=== PATIENT | female | born 1965 | race Two or more races ===

== ENCOUNTER → 2024-10-06 | Outpatient (CLI) | payer MEDICAID, SELFPAY ==
--- NOTE | 2024-10-06 13:00 | XR_ITS ---
Examination: Screening digital mammography, bilateral Computer aided detection 3-D breast Tomosynthesis, bilateral Date and time of exam: October 06, 2024 1345 hours Indication: Screening Technique: Nonmagnified MLO, CC views of the breasts to been obtained, reconstructed from 3-D Tomosynthesis images. R2 computer aided detection program utilized for evaluation of suspicious masses and/or abnormal calcifications. 3-D Tomosynthesis images obtained. Findings: Scattered areas of fibroglandular density. Skin lesion inner left breast. Benign calcifications. No suspicious masses Impression: BI-RADS category II: Benign Findings. Recommend 1 year follow-up mammogram.
== END | disposition home or self-care (01) ==
PROVIDERS: PCP Student in an Organized Health Care Education/Training Program; Referring Provider Student in an Organized Health Care Education/Training Program; Visit Provider Student in an Organized Health Care Education/Training Program
DX: Z12.31 Encounter for screening mammogram for malignant neoplasm of breast (principal); R92.323 Mammographic fibroglandular density, bilateral breasts; R92.1 Mammographic calcification found on diagnostic imaging of breast
CPT/HCPCS: 77063; 77067

== ENCOUNTER 2025-02-22 09:55 | Outpatient (AMB) | payer MEDICAID, SELFPAY ==
[2025-02-22 10:14] VITALS: BP 161/90; PULSE 97; RESP 18; O2SAT 96
--- NOTE | 2025-02-22 10:14 | PD.RESCLINIC ---
Vital Signs 02/22/25 10:14 Weight 62.766 kg Weight Measurement Method Standing Scale BP 161/90 H Blood Pressure Source Automatic Cuff Blood Pressure Location Right Upper Arm Position Sitting Respiration 18 Pulse 97 Pulse Source Monitor Pulse Oximetry (%) 96 Oxygen Delivery Method Room Air Allergies/Meds Allergies & Medications Allergies No Known Allergies Allergy (Verified 02/22/25 10:15) MA Intake Visit Data Collection New Patient or Established: New Patient not seen in past 3 years at [facility] (considered New) Seen by Clinical Staff ONLY (RN/MA): No Pain Present Currently: No Pain scale:: 0 Pain Scale Used: Huggins-Julio/Numerical Epic Ambulatory Specialists Required: No PCP or OBGYN visit in last 3 months: No Hx Now: No Smoking Status Smoking Status: Never smoker Immunization / Flu Flu Vaccine in the Last 12 Months: No Flu Vaccine Exclusion Criteria: No Exclusion Criteria Past Medical History Past Medical History CARDIAC: Positive Cardiac Disorders RESPIRATORY: Negative Asthma GENITOURINARY: Negative Renal Disease ENDOCRINE: Negative Diabetes Mellitus Type 2 HEMATOLOGIC: Negative Sickle Cell Disease Social History SMOKING STATUS: Smoking status: Never smoker Patient Portal Questionaires Social History Tobacco History Smoking Status: Never smoker Review of Systems Report any current symptoms Only answer those that you have currently: Past Medical History Past Medical History Have you ever been diagnosed with any of the following: Respiratory Problems Asthma: No Genital/Urinary Problems Renal Disease: No Endocrine Problems Diabetes Mellitus Type 2: No Blood Problems Sickle Cell Disease: No History of Present Illness HPI Narrative Chief Complaint (CC): Establish care History of Present Illness (HPI): a 59-year-old female patient reportedly known case of diabetes mellitus, peripheral neuropathy,? Left eye retinopathy,?right eye glaucoma, hypertension who recently immigrated from [facility] last year came to the clinic to establish care. Patient reported that she has recurrent pain, tingling and numbness of her lower extremities for the past few years associated with mild swelling whenever she stands up for prolonged.. Even though she was prescribed gabapentin that she brought with her however it did not help with her symptoms. Patient reported that the symptoms located in the upper and lower extremities and denied any weakness. Patient has been diagnosed with diabetes mellitus for more than 15 years, she reported at some point she was on insulin however she was switched to oral meds for unknown reason. She reported excessive thirst and excessive urination, she reported that her last A1c was 5 months ago and it was 11. At this time she is on 4 oral glycemic medications including metformin, glipizide, Januvia, Rybelsus, she reported that she has difficulty managing her meds as they are all marked in Latvian, she also reported having difficulty to follow-up with her previous PCP due to her inability to communicate with them in Latvian, unable to drive, and reported that she lives with her daughter who has multiple kids and also limited Latvian proficiency and sometimes she is unable to bring her to her appointments. In review of other possible diabetes complication, patient reported that she has history of left eye retinopathy she does not know the reason and she is taking eyedrops for it. She mentions that her previous provider has referred her to an conference assistant in [place] however she has not had the chance to see him yet. Patient denied any urine tract symptoms, denied any frothy urine and has never seen a sharepoint manager in the past. In review of other system: Neurology/psychiatry: Patient reported that since she came to the [facility] she feels that she is isolated, unable to drive, she reported that her mood has been low all-time. Reported excessive fatigue, guilt, she also reported feels sad all the time, she also reported weight loss and loss of appetite, she became teary while she is telling me that she hates how she feels now. Patient denied any history of suicidal ideation and denied any plans to hurt herself or others. Respiratory/CVS: Patient reported excessive shortness of breath when she lays flat and she has to put 2 pillows whenever she sleeps. Patient reported mild chest pain that is not related to any activity. The chest pain is located at the epigastric area with no radiation associated with nausea. Patient also reported episodes of palpitation however she denied any dizziness, cough, fever, or any history of rheumatic fever. GI: Patient reported recurrent episodes of nausea, halitosis, patient reported alternating constipation and diarrhea associated with weight loss specially for the past year after she came to the [facility]. She believes it is because her diet has changed here in the [facility]. However denied any upper or lower GI bleed. Reported that almost 3 years ago she has done an EGD in [facility] and was found to have peptic ulcer and was treated at that time. Patient has never had colonoscopy in the past. Musculoskeletal: Patient reported left knee pain, increased with activity, the pain also started as soon as she wake up. However she denied any swelling, hotness, or tenderness and denied any change of skin color over any joints. She also reported crack sounds whenever she flex or extend her knee joint. Last visit to the ED was in 2023 after she experienced diarrhea and found to have black tarry stool however it was concluded that the patient has gastroenteritis and the change in color of her stool was secondary to her Pepto-Bismol that she took [id number]. Patient was instructed to follow-up with a GI specialist however she has never seen a GI specialist and does not remember she was told to do so. Patient is here for continuity of care, medication refills, and routine management. Past Medical History (PMH): as above Family History: Parents unknown reason Social History: ? Tobacco: Denied ? Alcohol: Denied ? Drug Use: Denied ? Exercise: Daily chores only, no dedicated physical exercise ? Occupation: Unemployed ? Limitations: Speak only Setswana Medications: Metformin, glipizide, Rybelsus, Januvia, lisinopril, gabapentin, omeprazole, eyedrops? Allergies: No known allergies Review of Systems Review of Systems Systems Reviewed: All systems reviewed, normal except as documented Objective/Exam Narrative Physical exam: GEN: AOx3, able to speak full sentences, low mood and affect HEENT: NC/AC, oral mucosa moist, neck supple CVS: RRR, S1-S2 present, no murmurs appreciated RESP: Decreased air entry on the right side basal area, no added sounds, no respiratory distress GI: soft,non distended, non tender, NBS MSK: able to move all 4 limbs, no lower extremity edema, no injuries noted SKIN: warm and dry PARLOR MAID: CN II-XII are grossly intact, and decreased sensation grossly in the lower and upper extremities. Assessment & Plan Diagnosis / Problem List (1) Depression: Status: Acute Assessment & Plan: Screening for depression through the major depression index came back positive for moderate depression with a score of 18 Could be secondary to her feeling isolated since she immigrated from [facility] last year. She reported that she lives with her daughter and she feels that her daughter is overwhelmed as she has multiple kids she has to take care of them. She also reported her language barrier has been affecting her and she is unable to socialize and made her feel isolated. She also reported that she is unable to drive and she relies on her brother or her daughter to take her to her appointments. Patient has lost approximately 3 kg since her last visit to the ED last year 2023 Plan: ? Vitamin B12 screening ? Vitamin D screening ? TSH screening ? if all lab results came back normal we will start the patient on antidepressant medication and will try to refer the patient to psychologist. (2) Hypertension: Status: Acute Qualifiers: Hypertension type: primary hypertension Qualified Code(s): I10 - Essential (primary) hypertension Assessment & Plan: Patient reported that she has been taking lisinopril for her blood pressure. She mentions that most of the time her blood pressure within normal limits however on questioning how often she takes her blood pressure measurements she reported every few months. Today her blood pressure was 161/90 Plan: ? Continue her home medication lisinopril. ? Patient instructed to check her blood pressure on daily basis and keep a chart to see if we need to adjust her medications. (3) Diabetes: Status: Acute Qualifiers: Diabetes mellitus type: type 2 Diabetes mellitus prison insulin use: with exterminator use Diabetes mellitus complication status: with ophthalmic complications Diabetes mellitus complication detail: with diabetic retinopathy Diabetic retinopathy severity: with unspecified retinopathy severity Laterality: left Diabetes mellitus macular edema: without macular edema Qualified Code(s): E11.319 - Type 2 diabetes mellitus with unspecified diabetic retinopathy without macular edema; Z79.4 - exterminator helper (current) use of insulin Assessment & Plan: Patient reported that she was diagnosed with diabetes more than 15 to 20 years ago, she reported that at some point she was on insulin for only 1 year and was switched to oral medications for unknown reason. She does not follow-up regularly on her A1c however she mentioned that last A1c was done approximately 5 to 6 months ago and it was 11. On questioning patient reported that she has polyphagia and polydipsia which indicate that she has poor diabetes control. She also reported that she has signs and symptoms of peripheral neuropathy, history of retinopathy and her left eye. On review of her medications she was found to be on metformin, Rybelsus, Januvia, glipizide Plan: ? CBC, CMP, A1c, TSH ? Random microalbuminuria/urine creatinine ratio ? Patient was already referred to conference assistant by her previous PCP has been waiting for an appointment from the doctor's office in [place], will follow-up ? Will refer the patient to podiatry after we get the results for the vitamin B12 level ? Lipid panel to assess cardiovascular accident risk stratification ? Dietary counseling (4) Fatigue: Status: Acute Qualifiers: Fatigue type: chronic, unspecified Qualified Code(s): R53.82 - Chronic fatigue, unspecified Assessment & Plan: Patient reported excessive fatigue, weight loss, nausea, could be metabolic secondary to poorly controlled diabetes mellitus versus nutritional versus psychological Plan: ? CBC, TSH level, vitamin D level, iron study ? Follow-up on the other blood work results ? If all lab ruled out any physical reason for depression we will start the patient on antidepressant medications. (5) Weight loss: Status: Acute Assessment & Plan: Patient reported weight loss, objectively last year in January 2024 her body weight was 65.3 today her body weight is 62.7. Patient reported that she has persistent nausea and halitosis. She also reported alternating symptoms of constipation and diarrhea. Patient has never had colonoscopy however she had EGD was done approximately 3 years ago in [facility] and she found to have peptic ulcer which was treated at that time. Has never had colonoscopy workup. Plan: ? Urea breath test. Hold any [id number] omeprazole for 7 days before the urea breath test. ? Referral for GI specialist Dr. Miller for possible colonoscopy as she has never had cancer screening. Will will follow-up with the GI specialist recommendation if the patient need EGD according to the GI specialist. ?Fecal occult blood test lab (6) Halitosis: Status: Acute Plan: As above (7) Shortness of breath: Status: Acute Assessment & Plan: Patient reported that she has orthopnea, palpitation, she reported that she has done an echo in 2022 in [facility] and they reported that she has mild heart enlargement she also reported she has persistent chest pain that is not related to the activity. She denied any fainting episodes. Patient was referred by her previous PCP to a mud car worker. She reported that her appointment is today at 2:30 PM. Plan: - Follow-up with the patient mud car worker recommendations. ? Will ask for the records from the mud car worker ? Chest x-ray (8) Left knee pain: Status: Acute Assessment & Plan: Most likely osteoarthritis as the pain increased with activity located in the left side only, she feels crunching sound when she stretch her knee. Denied any redness or hotness on the overlying skin. Denied any swelling fever or chills. Plan: - Left knee x-ray Orders: Orders Comprehensive Metabolic Panel 02/22/25 E11.9 - Type 2 diabetes mellitus without complications, F32.A - Depression, unspecified, I10 - Essential (primary) hypertension Occult Blood, Stool (LAB) 02/22/25 R53.83 - Other fatigue, R63.4 - Abnormal weight loss Urea Breath Test 02/22/25 R11.0 - Nausea, R19.6 - Halitosis Microalbumin, Ur Rnd w Creat 02/22/25 E11.9 - Type 2 diabetes mellitus without complications Vitamin B12 02/22/25 Ambulatory Hemoglobin A1C 02/22/25 E11.9 - Type 2 diabetes mellitus without complications, I10 - Essential (primary) hypertension Lipid Panel 02/22/25 Thyroid Stimulating Hormone 02/22/25 R53.83 - Other fatigue Vitamin D 25 Hydroxy Total 02/22/25 E11.9 - Type 2 diabetes mellitus without complications Iron 02/22/25 R53.83 - Other fatigue, R63.4 - Abnormal weight loss XR chest 2V 02/22/25 R06.02 - Shortness of breath XR knee limited LT 2V 02/22/25 M25.562 - Pain in left knee Referrals Gastroenterology F32.A - Depression, unspecified, K59.00 - Constipation, unspecified Additional Assessment Preventive Care - Cervical cancer: Pap + HPV q5y until age 64, pending old medical records from her previous PCP - Breast cancer: Done in October 2024 BI-RADS category II: Benign Findings. Recommend 1 year follow-up mammogram. Next will be in October 2025 - Colorectal cancer: Patient referred to Dr. Miller on the 22 February 2025 for colon cancer screening - Flu shots: Unknown Office Procedures [facility] Level of Care Nursing/Assessment Patient Status: Established Patient Nursing Assessment/Reassessment: Medication Reconciliation, Update PMH in EMR and Vital Signs Coordination of Care: Complex Care and Chronic Disease 1-5, Consent,records obtained, informed consent, Education Simp Pt/Fam and Staff clarify orders Established Patient Charge Established Patient Point Assignment: 85 Established Patient Point Charge: EP Level 3 (80-115)
== END 2025-02-22 11:08 | disposition home or self-care (01) ==
LOC: HODAHC 09:55
PROVIDERS: Supervising Provider Internal Medicine; Visit Provider Student in an Organized Health Care Education/Training Program
DX: F32.A Depression, unspecified (principal); I10 Essential (primary) hypertension; E11.9 Type 2 diabetes mellitus without complications; R53.82 Chronic fatigue, unspecified; R63.4 Abnormal weight loss; R19.6 Halitosis; R06.02 Shortness of breath; M25.562 Pain in left knee
CPT/HCPCS: 99213; G0463

== ENCOUNTER → 2025-02-23 | Outpatient (CLI) | payer MEDICAID, SELFPAY ==
--- NOTE | 2025-02-23 | XR_ITS ---
Examination: Left knee 2 views Technique one AP lateral left knee 2 views Date and time: February 23, 2025 1144 hours INDICATIONS: Left knee pain several months. FINDINGS: Mild to moderate narrowing medial joint space Mild to moderate osteoarthritis patellofemoral joint No fracture Moderate osteopenia IMPRESSION: Mild to moderate osteoarthritis
--- NOTE | 2025-02-23 | XR_ITS ---
Examination: PA lateral chest 2 views TECHNIQUE: Upright PA lateral chest 2 views. Date and time: February 23, 11:41 AM. INDICATIONS: Shortness of breath beginning one week ago. FINDINGS: Normal heart size The lungs are clear. The osseous structures are demineralized IMPRESSION: No active disease
== END | disposition home or self-care (01) ==
LOC: CDIM 10:44
PROVIDERS: PCP Student in an Organized Health Care Education/Training Program; Referring Provider Student in an Organized Health Care Education/Training Program; Visit Provider Student in an Organized Health Care Education/Training Program
DX: M17.12 Unilateral primary osteoarthritis, left knee (principal); R06.02 Shortness of breath
CPT/HCPCS: 71046; 73560

== ENCOUNTER → 2025-04-13 13:38 | Outpatient (AMB) | payer MEDICAID, SELFPAY | PROVIDERS: PCP Student in an Organized Health Care Education/Training Program; Referring Provider Student in an Organized Health Care Education/Training Program; Supervising Provider Student in an Organized Health Care Education/Training Program; Visit Provider Student in an Organized Health Care Education/Training Program | DX: Z53.9 Procedure and treatment not carried out, unspecified reason (principal) ==

== ENCOUNTER 2025-04-27 13:18 | Outpatient (AMB) | payer MEDICAID, SELFPAY ==
[2025-04-27 13:29] VITALS: BP 158/92; PULSE 95; RESP 18; TEMP 36.7; O2SAT 97
--- NOTE | 2025-04-27 13:29 | PD.RESCLINIC ---
Vital Signs 04/27/25 13:29 Weight 63.673 kg Weight Measurement Method Standing Scale BP 158/92 H Blood Pressure Source Automatic Cuff Blood Pressure Location Right Upper Arm Position Sitting Respiration 18 Pulse 95 Pulse Source Monitor Temp 98.1 F Temp Source Oral Pulse Oximetry (%) 97 Oxygen Delivery Method Room Air Allergies/Meds Allergies & Medications Allergies No Known Allergies Allergy (Verified 04/27/25 13:30) Medication Reconciliation alcohol swabs (Alcohol Pads) 1 pad topical TID #200 ea 04/27/25 [Rx] aspirin 81 mg tablet 81 mg PO QDAY #20 tabs 04/27/25 [Rx] atorvastatin 20 mg tablet (Lipitor) 20 mg PO QHS #20 tabs 04/27/25 [Rx] blood sugar diagnostic (Accu-Chek Guide test strips) #100 ea 04/27/25 [Rx] blood-glucose meter (Accu-Chek Guide Me Glucose Meter) #1 ea 04/27/25 [Rx] gabapentin 300 mg capsule 300 mg PO QDAY 04/27/25 [History Confirmed 04/27/25] lancets (Accu-Chek Fastclix Lancet Drum) #200 ea 04/27/25 [Rx] lancets 28 gauge (Acti-Isaías Lancets) #100 ea 04/27/25 [Rx] lisinopril 20 mg tablet 20 mg PO QDAY #30 tabs 04/27/25 [Rx] omeprazole 20 mg capsule,delayed release 20 mg PO QDAY 04/27/25 [History Confirmed 04/27/25] sitagliptin phos 100 mg-metformin ER 1,000 mg tablet,extend rel 24h mp (Janumet XR) 1 tab PO QDAY 04/27/25 [History Confirmed 04/27/25] MA Intake Visit Data Collection New Patient or Established: Established Patient (seen at [facility] within 3 years) Seen by Clinical Staff ONLY (RN/MA): No Pain Present Currently: No Pain scale:: 0 Pain Scale Used: Huggins-Julio/Numerical Do You Feel Safe at Home: Yes Authorities Contacted: N/A Smoking Status Smoking Status: Never smoker Immunization / Flu Flu Vaccine in the Last 12 Months: No Flu Vaccine Exclusion Criteria: No Exclusion Criteria Past Medical History Past Medical History CARDIAC: Positive Cardiac Disorders RESPIRATORY: Negative Asthma GENITOURINARY: Negative Renal Disease ENDOCRINE: Negative Diabetes Mellitus Type 2 HEMATOLOGIC: Negative Sickle Cell Disease Social History SMOKING STATUS: Smoking status: Never smoker Patient Portal Questionaires Social History Tobacco History Smoking Status: Never smoker Domestic Abuse History Do You Feel Safe at Home: Yes Review of Systems Report any current symptoms Only answer those that you have currently: Past Medical History Past Medical History Have you ever been diagnosed with any of the following: Respiratory Problems Asthma: No Genital/Urinary Problems Renal Disease: No Endocrine Problems Diabetes Mellitus Type 2: No Blood Problems Sickle Cell Disease: No Assessment & Plan Diagnosis / Problem List (1) Diabetes: Status: Acute Qualifiers: Diabetes mellitus complication detail: with diabetic retinopathy Diabetes mellitus complication status: with ophthalmic complications Diabetes mellitus assisted insulin use: with assisted use Diabetes mellitus macular edema: without macular edema Diabetes mellitus type: type 2 Diabetic retinopathy severity: with unspecified retinopathy severity Laterality: left Qualified Code(s): E11.319 - Type 2 diabetes mellitus with unspecified diabetic retinopathy without macular edema; Z79.4 - penitentiary (current) use of insulin (2) Hypercalcemia: Status: Acute (3) Abdominal pain: Status: Acute Orders: Orders Lipid Panel 1 Week R10.9 - Unspecified abdominal pain Vitamin D 25 Hydroxy Total 1 Week E83.52 - Hypercalcemia Helicobacter pylori Ag, Stool* 1 Week R10.9 - Unspecified abdominal pain Microalbumin, Ur Rnd w Creat 1 Week E11.319 - Type 2 diabetes mellitus with unspecified diabetic retinopathy without macular edema, Z79.4 - tank terminal gauger (current) use of insulin Parathyroid Hormone Intact 1 Week E83.52 - Hypercalcemia Thyroid Stimulating Hormone 1 Week Ambulatory Hemoglobin A1C 1 Week E11.319 - Type 2 diabetes mellitus with unspecified diabetic retinopathy without macular edema, Z79.4 - penitentiary (current) use of insulin Office Procedures [facility] Level of Care Nursing/Assessment Patient Status: Established Patient Nursing Assessment/Reassessment: Medication Reconciliation, Update PMH in EMR and Vital Signs Coordination of Care: Complex Care and Chronic Disease 1-5, Education Complex Pt/Fam and Staff clarify orders Established Patient Charge Established Patient Point Assignment: 85 Established Patient Point Charge: EP Level 2 (40-75)
== END 2025-04-27 14:23 | disposition home or self-care (01) ==
LOC: HODAHC 13:18
PROVIDERS: PCP Student in an Organized Health Care Education/Training Program; Referring Provider Student in an Organized Health Care Education/Training Program; Supervising Provider Student in an Organized Health Care Education/Training Program; Visit Provider Student in an Organized Health Care Education/Training Program
DX: E11.319 Type 2 diabetes mellitus with unspecified diabetic retinopathy without macular edema (principal); Z79.84 Long term (current) use of oral hypoglycemic drugs; Z79.4 Long term (current) use of insulin; E83.52 Hypercalcemia; R10.9 Unspecified abdominal pain
CPT/HCPCS: 99212; G0463

== ENCOUNTER 2025-05-04 14:21 | Outpatient (AMB) | payer MEDICAID, SELFPAY ==
--- NOTE | 2025-05-04 14:23 | ACNOTE_ITS ---
Allergies/Meds Allergies & Medications Allergies No Known Allergies Allergy (Verified 05/04/25 14:23) Medication Reconciliation alcohol swabs (Alcohol Pads) 1 pad topical TID #200 ea 04/27/25 [Rx Confirmed 05/04/25] aspirin 81 mg tablet 81 mg PO QDAY #20 tabs 04/27/25 [Rx Confirmed 05/04/25] blood sugar diagnostic (Accu-Chek Guide test strips) #100 04/27/25 [Rx Confirmed 05/04/25] blood-glucose meter (Accu-Chek Guide Me Glucose Meter) #1 ea 04/27/25 [Rx Confirmed 05/04/25] gabapentin 300 mg capsule 300 mg PO QDAY 04/27/25 [History Confirmed 05/04/25] lancets (Accu-Chek Fastclix Lancet Drum) #200 04/27/25 [Rx Confirmed 05/04/25] lancets 28 gauge (Acti-Isaías Lancets) #100 04/27/25 [Rx Confirmed 05/04/25] lisinopril 20 mg tablet 20 mg PO QDAY #30 tabs 04/27/25 [Rx Confirmed 05/04/25] omeprazole 20 mg capsule,delayed release 20 mg PO QDAY 04/27/25 [History Confirmed 05/04/25] sitagliptin phos 100 mg-metformin ER 1,000 mg tablet,extend rel 24h mp (Janumet XR) 1 tab PO QDAY 04/27/25 [History Confirmed 05/04/25] atorvastatin 80 mg tablet 80 mg PO QHS #30 tabs 05/04/25 [Rx] MA Intake Visit Data Collection New Patient or Established: Established Patient (seen at [facility] within 3 years) Seen by Clinical Staff ONLY (RN/MA): No PCP or OBGYN visit in last 3 months: Yes Do You Feel Safe at Home: Yes Authorities Contacted: N/A Smoking Status Smoking Status: Never smoker For Televisit only Telemed Video/Phone Visit: Yes Verbal consent obtained for Telemed visit?: Yes Verbal Consent witness name: jesika Telemed Video/Phone visit w/Clinical Staff: 21-30 min Immunization / Flu Flu Vaccine in the Last 12 Months: Yes Flu Vaccine Exclusion Criteria: Already Received Past Medical History Past Medical History CARDIAC: Positive Cardiac Disorders RESPIRATORY: Negative Asthma GENITOURINARY: Negative Renal Disease ENDOCRINE: Negative Diabetes Mellitus Type 2 HEMATOLOGIC: Negative Sickle Cell Disease Social History SMOKING STATUS: Smoking status: Never smoker Patient Portal Questionaires Social History Tobacco History Smoking Status: Never smoker Domestic Abuse History Do You Feel Safe at Home: Yes Review of Systems Report any current symptoms Only answer those that you have currently: Past Medical History Past Medical History Have you ever been diagnosed with any of the following: Respiratory Problems Asthma: No Genital/Urinary Problems Renal Disease: No Endocrine Problems Diabetes Mellitus Type 2: No Blood Problems Sickle Cell Disease: No History of Present Illness HPI Narrative A televisit was conducted, patient reported that she is doing well with the current medication. She was updated about her lab results from [facility], A1c showed improvement to 8.3, continue to have elevated calcium level, TSH was within normal limit. Pending her PTH, stool H. pylori. Patient has difficulty understanding the plan. Apparently the patient and her family has significant medical illiteracy. Will continue to follow-up with the patient closely next appointment within 2 to 4 weeks. Objective/Exam Narrative Physical exam: Telehealth visit. Assessment & Plan Diagnosis / Problem List (1) Diabetes: Status: Acute Qualifiers: Diabetes mellitus type: type 2 Diabetes mellitus fpc insulin use: with fpc use Diabetes mellitus complication status: with ophthalmic complications Diabetes mellitus complication detail: with diabetic retinopathy Diabetic retinopathy severity: with unspecified retinopathy severity Diabetes mellitus macular edema: without macular edema Laterality: left Qualified Code(s): E11.319 - Type 2 diabetes mellitus with unspecified diabetic retinopathy without macular edema; Z79.4 - care home (current) use of insulin Plan: ? A1c level was sent - 8.3 ? Urine microalbumin ? Lipid panel ? Arrange for ophthalmology visit, podiatry, next year ? Patient was found to have duplicate metformin, will stop the metformin and continue the Janumet (2) Hypercalcemia: Status: Acute Assessment & Plan: Patient denied using vitamin D supplements, denied any bone pain. She also reported that she has epigastric pain most likely secondary to her hypercalcemia Plan: ? PTH reviewed ? TSH reviewed ? H. pylori to rule out H. pylori infection (3) Abdominal pain: Status: Acute Assessment & Plan: Patient reported epigastric abdominal pain associated with mild episodes of nausea however no anorexia and no vomiting. Denied using any NSAIDs. Plan: ? H. pylori screening stool ? Omeprazole 40 mg p.o. daily Additional Assessment Attending note: I, Librado Jimenez MD, attest that I was physically present for the [place] portions of the service completed via telehealth, and I reviewed and discussed the case with the resident and agree with the resident's plans of care as documented above. Librado Jimenez MD Physician Billing Established Patient Established Patient: E/M Level 2-CPT 45789 Office Procedures [facility] Level of Care Nursing/Assessment Patient Status: Established Patient Nursing Assessment/Reassessment: Medication Reconciliation and Update PMH in EMR Coordination of Care: Complex Care/Chronic Disease 5 or more, Education Complex Pt/Fam and Results/Orders obtained Established Patient Charge Established Patient Point Assignment: 75 Telehealth Telemed Phone/Video with patient at home & Dr,PA,MANUFACTURING STOREPERSON: Yes
== END 2025-05-04 14:47 | disposition home or self-care (01) ==
LOC: HODAHC 14:21
PROVIDERS: PCP Student in an Organized Health Care Education/Training Program; Referring Provider Student in an Organized Health Care Education/Training Program; Supervising Provider Internal Medicine; Visit Provider Student in an Organized Health Care Education/Training Program
DX: E11.319 Type 2 diabetes mellitus with unspecified diabetic retinopathy without macular edema (principal); E83.52 Hypercalcemia; R10.13 Epigastric pain; R11.0 Nausea; Z79.84 Long term (current) use of oral hypoglycemic drugs
CPT/HCPCS: 99212; G0463